=== PATIENT | female | born 1960 | race Caucasian/White ===

== ENCOUNTER → 2018-10-22 08:49 | Outpatient (CLI) | payer OTHER, SELFPAY ==
[2018-10-22 10:50] LABS: Alanine Aminotransferase 19 IU/L (9-52); Albumin 4.4 g/dL (3.5-5.0); Albumin Globulin Ratio 1.3 (1.0-2.8); Alkaline Phosphatase 63 U/L (38-126); Aspartate Aminotransferase 22 IU/L (14-36); BUN Creatinine Ratio 16.3 (6-22); Bilirubin Total 0.7 mg/dL (0.2-1.3); Blood Urea Nitrogen 13 mg/dL (7-17); Calcium 9.6 mg/dL (8.4-10.2); Carbon Dioxide 31 mmol/L (22-32); Chloride 101 mmol/L (98-107); Cholesterol 215 mg/dL (140-199); Estimated Glomerular Filt Rate > 60.0 mL/min (>60); Globulin 3.5 g/dL (1.7-4.1); Glucose 114 mg/dL (70-100); HDL Cholesterol 37 mg/dL (40-60); HEMOLYSIS < 15 (0-50); LDL Cholesterol Calculated 134 mg/dL (<100); Potassium 3.8 mmol/L (3.4-5.1); Sodium 141 mmol/L (137-145); Total Protein 7.9 g/dL (6.3-8.2); Triglycerides 221 mg/dL (35-150)
[2018-10-22 10:57] LABS: Creatinine Urine Random 123.4 mg/dL
[2018-10-22 10:58] LABS: Microalbumi Creatinin Ratio Ur 4.8 ug/mg CR (<30); Microalbumin Urine Random < 0.6 mg/dL (0-1.6)
[2018-10-22 11:16] LABS: Hemoglobin A1C% w Est Avg Glu 7.9 % (4.0-6.0)
== END ==
PROVIDERS: PCP Family Medicine; Visit Provider Family Medicine
DX: E10.9 Type 1 diabetes mellitus without complications (principal); E78.5 Hyperlipidemia, unspecified
CPT/HCPCS: 36415; 80053; 80061; 82043; 82570; 83036

== ENCOUNTER → 2019-01-01 16:06 | Outpatient (CLI) | payer OTHER, SELFPAY ==
--- NOTE | 2019-01-01 | DI.RAD.S_ITS ---
PROCEDURE: XR ANKLE LT MIN 3V INDICATIONS: Left ankle pain TECHNIQUE: 3 views of the ankle were acquired. COMPARISON: None. FINDINGS: Bones: No dislocations. Ankle mortise is normally aligned. No suspicious bony lesions. There is a diagonal fracture through the distal metadiaphyseal junction of the left ankle, displaced by approximately 3-4 mm from anatomic alignment. The ankle mortise joint is slightly widened laterally, but is not widened medially. No additional fracture is seen along the posterior malleolus or medial malleolus. Soft tissues: No tibiotalar joint effusion. Achilles tendon appears normal. IMPRESSION: High lateral left ankle fracture, moderately displaced. Reportedly the trauma occurred approximately 2 days ago. The patient is recommended to receive ER consultation at this time. Dictated by: Gregorio Briones M.D. on 01/01/2019 at 16:32 Approved by: Gregorio Briones M.D. on 01/01/2019 at 16:35
== END ==
PROVIDERS: PCP Family Medicine; Visit Provider Family Medicine
DX: M25.572 Pain in left ankle and joints of left foot (principal); S82.62XA Displaced fracture of lateral malleolus of left fibula, initial encounter for closed fracture; X58.XXXA Exposure to other specified factors, initial encounter
CPT/HCPCS: 73610

== ENCOUNTER 2019-01-01 16:36 | Emergency (ER) | payer OTHER, SELFPAY ==
[2019-01-01 16:40] VITALS: PULSE 73; RESP 14; TEMP 37.1; O2SAT 98; BMI 28.3
[2019-01-01 17:52] VITALS: PULSE 72
[2019-01-01] MEDS: IBUPROFEN 400 MG TABLET PO (17:58)
[2019-01-01] MEDS: ACETAMINOPHEN 325 MG TABLET 975 MG PO (17:58)
--- NOTE | 2019-01-01 18:21 | ED_ITS ---
HPI - Extremity Injury (Lower) General Chief Complaint: Extremity Injury, Lower Stated Complaint: left ankle fracture, sent by RISHABH for splinting Time Seen by Provider: 01/01/19 18:10 Source: patient Mode of arrival: ambulatory Limitations: no limitations History of Present Illness HPI Narrative: Patient is a 58-year-old female who sustained a left ankle injury approximately 1 week ago. She stated that she went to her primary doctor's office however did not have any radiologic studies performed. She did state that she asked not to have any studies performed. She has been walking on it for the past week however has had quite a bit of discomfort. She went back to her primary doctor today who obtained an outpatient x-ray which was positive for fracture she was sent to the emergency department for splint placement. Related Data Home Medications Medication Instructions Recorded Confirmed insulin degludec [Tresiba 60 units SUBCUT DAILY 01/01/19 FlexTouch U-200] insulin lispro [Humalog KwikPen 20 units SUBCUT TID 01/01/19 01/01/19 Insulin] Allergies Allergy/AdvReac Type Severity Reaction Status Date / Time cortisone [CORTISONE] Allergy Intermediate uncontrolled Verified 01/01/19 17:57 blood sugar Sulfa (Sulfonamide Allergy Intermediate hives Verified 01/01/19 17:57 Antibiotics) [SULFA (SULFONAMIDE ANTIBIOTICS)] narcotics Allergy Intermediate nausea Uncoded 09/05/17 12:41 Review of Systems Constitutional Denies fever(s), Denies headache(s) and Denies weakness ENT Ears, Nose, Mouth, and Throat: Denies headache(s) and Denies disequilibrium Musculoskeletal Comments: Left ankle pain Integumentary/Breasts Denies lesions and Denies rash Neurologic Denies headache(s), Denies tremor(s), Denies disequilibrium and Denies weakness Hematologic/Lymphatic Denies easy bleeding and Denies easy bruising [facility] Medical History Diabetes (Acute) Surgical History (Updated 09/25/17 @ 06:12 by Conversion Provider) Status post tubal ligation Family History (Updated 01/27/17 @ 00:00 by Conversion Provider) Brother Parkinson's disease Mother Age: 87 Stroke Sister Age: 53 Skin cancer Social History Smoking Status: Never smoker Family History (Updated 01/27/17 @ 00:00 by Conversion Provider) Brother Parkinson's disease Mother Age: 87 Stroke Sister Age: 53 Skin cancer Social History Smoking Status: Never smoker Exam Initial Vital Signs Initial Vital Signs: Vital Signs Temperature 98.8 F 01/01/19 16:40 Pulse Rate 73 01/01/19 16:40 Respiratory Rate 14 01/01/19 16:40 Pulse Oximetry 98 01/01/19 16:40 Const General: cooperative, comfortable, well developed and No acute distress Resp Effort & Inspection: normal respiratory effort Skin Lesions: no lesions Rashes: no rashes Extrem Other: Tenderness to palpation lateral aspect of the left ankle above the lateral malleolus Psych Appearance: grossly normal and well kempt Procedures Orthopedic Splinting/Casting Injury #1: Side: left Lower Extremity Injury Location: ankle Lower Extremity Immobilizer: posterior splint and stirrup splint Other Orthopedic Equipment: crutches Post splinting neuro exam: no change Post splinting vascular exam: no change Placed by: Nursing Course Orders Ordered: Discontinued Medications Acetaminophen (Tylenol) 975 mg PO NOW ONE Stop: 01/01/19 17:50 Last Admin: 01/01/19 17:58 Dose: 975 mg Ibuprofen (Advil) 400 mg PO NOW ONE Stop: 01/01/19 17:51 Last Admin: 01/01/19 17:58 Dose: 400 mg Vital Signs - 8 hr 01/01/19 16:40 01/01/19 17:52 01/01/19 18:40 Temperature 98.8 F Pulse Rate 73 76 Pulse Rate [Left Dorsalis Pedis] 72 Respiratory Rate 14 18 Blood Pressure [Left Arm] 159/78 H Pulse Oximetry 98 98 MDM - Extremity Injury (Lower) Imaging Data Ankle x-ray: Radiologist's impression: [address] [address] XRay Report Signed Patient: Abby Jules HMR#: [id number] : 1960cct:[id number] Age/Sex: 58 / FDate of Service: 01/01/19 Loc: DI Accession Number: [id number] Procedure: XR ankle LT min 3V Ordering Provider: Jeffrey Garcia MD PROCEDURE: XR ANKLE LT MIN 3V INDICATIONS: Left ankle pain TECHNIQUE: 3 views of the ankle were acquired. COMPARISON: None. FINDINGS: Bones: No dislocations. Ankle mortise is normally aligned. No suspicious bony lesions. There is a diagonal fracture through the distal metadiaphyseal junction of the left ankle, displaced by approximately 3-4 mm from anatomic alignment. The ankle mortise joint is slightly widened laterally, but is not widened medially. No additional fracture is seen along the posterior malleolus or medial malleolus. Soft tissues: No tibiotalar joint effusion. Achilles tendon appears normal. IMPRESSION: High lateral left ankle fracture, moderately displaced. Reportedly the trauma occurred approximately 2 days ago. The patient is recommended to receive ER consultation at this time. Dictated by: Gregorio Briones M.D. on 01/01/2019 at 16:32 Approved by: Gregorio Briones M.D. on 01/01/2019 at 16:35 [facility] Narrative Medical decision making narrative: The ankle x-ray report included in this note is for information purposes only. It was ordered by another provider as an outpatient. Patient is neurovascular intact. Does show an isolated distal fibula fracture. She has been ambulatory for the past week. She was placed in a splint and was given crutches for comfort. She was also given the phone number follow-up with the orthopedic group here in town was also instructed to contact her primary provider. She was given return precautions and follow-up instructions and care instructions. She expressed understanding and agreement plan. Discharge Plan Departure Patient Disposition: Home Clinical Impression: Fracture of distal end of left fibula Qualifiers: Encounter type: initial encounter Fracture type: closed Fracture morphology: unspecified fracture morphology Qualified Code(s): S82.832A - Other fracture of upper and lower end of left fibula, initial encounter for closed fracture Discharge Date/Time: 01/01/19 18:46 Interventions: ED Discharge Assessment Last Done: 01/01/19 18:46 Instructions: How to Use Crutches, How to Take Care of Your Splint, Fibula Shaft Fracture Activity Restrictions/Additional Instructions: Contact the [facility] group at [phone] for a follow up. Contact your primary care provider for a follow up as well. Return to the ER for any new or worsening symptoms. Prescriptions: No Action Humalog KwikPen Insulin 200 unit/mL (3 mL) insulin pen 20 units subcut TID RF: 0 Tresiba FlexTouch U-200 200 unit/mL (3 mL) insulin pen 60 units subcut DAILY RF: 0 Referrals: Jeffrey Garcia MD [Primary Care Provider] -
[2019-01-01 18:40] VITALS: BP 159/78; PULSE 76; RESP 18; O2SAT 98
== END 2019-01-01 18:46 | disposition home or self-care (01) ==
PROVIDERS: Emergency Provider Emergency Medicine; PCP Family Medicine
DX: S82.832A Other fracture of upper and lower end of left fibula, initial encounter for closed fracture (principal); X58.XXXA Exposure to other specified factors, initial encounter
CPT/HCPCS: 29515; 73610; 99282

== ENCOUNTER 2019-07-08 17:44 | Emergency (ER) | payer OTHER, SELFPAY ==
[2019-07-08 17:46] VITALS: BP 198/91; PULSE 106; RESP 18; TEMP 36.7; O2SAT 98
--- NOTE | 2019-07-08 18:33 | ED_ITS ---
HPI - Headache General Chief Complaint: Headache Stated Complaint: Swollen Temples and Headache Time Seen by Provider: 07/08/19 18:20 Source: patient Mode of arrival: Ambulatory Limitations: no limitations History of Present Illness HPI Narrative: 51-year-old female nonsmoker with history of diabetes presents with a chief complaint of bilaterally swollen temples and a vague headache over the course of the day. 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 She denies any blurred vision or trouble with speech. She has had no numbness, tingling or weakness. She denies chest pain or shortness of breath. She does admit that she has had some right upper extremity pain with range of motion off and on for quite some time. She denies any swollen lips, tongue or throat. She denies any trouble swallowing or difficulty breathing. She denies any rash or urticaria. Her headache is mild and generalized. She denies provocation or palliation MD Complaint: headache Onset (ago): hour(s) Onset description: gradual Location: diffuse Severity: mild Quality: aching Relieving factors: nothing Exacerbating factors: none Associated symptoms: other (Swollen temples) Related Data Home Medications Medication Instructions Recorded Confirmed insulin degludec [Tresiba 60 units SUBCUT DAILY 01/01/19 07/08/19 FlexTouch U-200] insulin lispro [Humalog KwikPen 20 units SUBCUT TID 01/01/19 07/08/19 Insulin] aspirin [Adult Low Dose Aspirin] 81 mg PO DAILY 07/08/19 07/08/19 Allergies Allergy/AdvReac Type Severity Reaction Status Date / Time cortisone [CORTISONE] Allergy Intermediate uncontrolled Verified 07/08/19 17:52 blood sugar Sulfa (Sulfonamide Allergy Intermediate hives Verified 07/08/19 17:52 Antibiotics) [SULFA (SULFONAMIDE ANTIBIOTICS)] narcotics Allergy Intermediate nausea Uncoded 09/05/17 12:41 Review of Systems Constitutional Constitutional: Denies chills, Denies fatigue, Denies fever(s), Denies frequent falls, Reports headache(s), Denies lethargy and Denies weakness Eyes Eyes: Denies change in vision, Denies eye discharge, Denies irritation and Denies loss of vision ENT Ears, Nose, Mouth, and Throat: Denies change in voice, Denies dizziness, Reports headache(s), Denies neck pain, Denies sore throat and Denies throat swelling Cardiovascular Cardiovascular: Denies chest pain, Denies irregular heart rhythm, Denies lightheadedness, Denies palpitations, Denies dyspnea, Denies dyspnea on exertion and Denies orthopnea Respiratory Respiratory: Denies cough, Denies dyspnea, Denies dyspnea on exertion and Denies wheezing Gastrointestinal Gastrointestinal: Denies abdominal pain, Denies change in bowel habits, Denies diarrhea, Denies nausea and Denies vomiting Genitourinary Genitourinary: Denies hematuria, Denies flank pain, Denies urinary incontinence and Denies urinary urgency Musculoskeletal Musculoskeletal: Denies back pain, Denies muscle weakness, Denies neck pain, Denies numbness and Denies tingling Integumentary/Breasts Skin/Breast: Denies pruritus, Denies erythema, Denies rash and Denies wounds Neurologic Neurologic: Denies behavioral changes, Denies confusion, Denies dizziness, Denies frequent falls, Reports headache(s), Denies loss of vision, Denies numbness, Denies tingling and Denies weakness Psychiatric Psychiatric: Denies anxiety, Denies behavioral changes, Denies confusion, Denies depression, Denies homicidal ideation and Denies suicidal ideation Endocrine Endocrine: Denies fatigue, Denies flushing and Denies palpitations Hematologic/Lymphatic Hematologic/Lymphatic: Denies easy bruising Allergic/Immunologic Allergic/Immunologic: Denies urticaria, Denies throat swelling and Denies wheezing Patient History Medical History (Updated 07/08/19 @ 20:30 by Carter Boyce DO) Diabetes (Acute) Surgical History (Updated 01/03/19 @ 10:39 by Lina Tomlin RN) H/O LEEP (Acute) Status post tubal ligation Family History (Updated 01/27/17 @ 00:00 by Conversion Provider) Brother Parkinson's disease Mother Age: 88 Stroke Sister Age: 54 Skin cancer Social History Smoking Status: Never smoker Smoking Status: Never smoker alcohol intake frequency: 0-2 drinks per day Substance Use Type: does not use Exam Narrative Exam Narrative: GENERAL: [59] year old patient appears stated age. Well-nour ished, well-developed patient, in mild distress. Anxious HEAD: Atraumatic. Normocephalic. No tenderness to palpation over bilateral temporal arteries. No obvious swelling noted, though it is reported by patient. EYES: Pupils equal round and reactive. Extraocular motions intact. No scleral icterus. No injection or drainage. ENT: Nose without bleeding, purulent drainage. Throat without erythema, tonsillar hypertrophy or exudate. Airway patent. NECK: Trachea midline. Non tender CARDIOVASCULAR: Regular rate and rhythm without murmurs, gallops, or rubs. RESPIRATORY: Clear to auscultation. Breath sounds equal bilaterally. No wheezes, rales, or rhonchi. GASTROINTESTINAL: Abdomen soft, non-tender, nondistended. EXTREMITIES: No edema or joint tenderness. BACK: Nontender without deformity or crepitance. No flank tenderness. NEURO: AOx3. SKIN: No rash or erythema of visible areas Initial Vital Signs Initial Vital Signs: Vital Signs Temperature 98.1 F 07/08/19 17:46 Pulse Rate 106 H 07/08/19 17:46 Respiratory Rate 18 07/08/19 17:46 Blood Pressure 198/91 H 07/08/19 17:46 Pulse Oximetry 98 07/08/19 17:46 Course Orders Ordered: ED Orders 07/08/19 19:13 Complete Blood Count AUTO DIFF Stat Comprehensive Metabolic Panel Stat Procalcitonin Stat Vital Signs Vital signs: Vital Signs - 8 hr 07/08/19 19:42 07/08/19 20:30 07/08/19 20:37 Pulse Rate 85 80 23 L Respiratory Rate 14 15 81 H Blood Pressure 154/86 H Blood Pressure [Right Arm] 177/84 H 154/86 H Pulse Oximetry 95 95 98 MDM - Headache Lab Data Result diagrams: 07/08/19 19:13 07/08/19 19:13 Labs: Lab Results 07/08/19 07/08/19 07/08/19 Range/Units 19:13 19:13 19:13 WBC 10.4 (4.5-11.0) X10^3/uL RBC 4.81 (4.0-5.2) X10^6/uL Hgb 13.8 (12.0-16.0) g/dL Hct 40.7 (36-46) % MCV 84.7 (80-100) fL MCH 28.7 (26-34) PG MCHC 33.9 (30-36) % RDW 13.4 (11.6-14.8) % Plt Count 334 (150-400) X10^3/uL Neut % (Auto) 61.0 (50-75) % Lymph % (Auto) 28.5 (25-40) % [place] % (Auto) 8.3 (3-14) % Eos % (Auto) 1.4 L (2-4) % Baso % (Auto) 0.8 (0-2) % Neut # (Auto) 6300 (2051-5052) /uL Lymph # (Auto) 3000 (1115-5531) /uL [place] # (Auto) 900 (0-900) /uL Eos # (Auto) 100 (0-450) /uL Baso # (Auto) 100 (0-100) /uL Sodium 140 (137-145) mmol/L Potassium 3.7 (3.4-5.1) mmol/L Chloride 103 (98-107) mmol/L Carbon Dioxide 31 (22-32) mmol/L BUN 15 (7-17) mg/dL Creatinine 0.80 (0.52-1.04) mg/dL Estimated GFR > 60.0 (>60) mL/min BUN/Creatinine Ratio 18.8 (6-22) Glucose 169 H (70-100) mg/dL Calcium 9.5 (8.4-10.2) mg/dL Total Bilirubin 0.3 (0.2-1.3) mg/dL AST 29 (14-36) IU/L ALT 17 (<35) IU/L Alkaline Phosphatase 78 (38-126) U/L Total Protein 8.2 (6.3-8.2) g/dL Albumin 4.5 (3.5-5.0) g/dL Globulin 3.7 (1.7-4.1) g/dL Albumin/Globulin Ratio 1.2 (1.0-2.8) Procalcitonin < 0.05 (<0.5) ng/mL MDM Narrative Medical decision making narrative: Multiple etiologies for patient's symptoms considered including: [Allergic reaction versus temporal arteritis versus other] Patient's symptoms improved or duration of stay with above-stated therapies. Findings and discharge diagnosis discussed with patient/family followed by verbalization of understanding Return precautions discussed with patient/family whom verbalize understanding. Discharge Plan Departure Patient Disposition: Home Clinical Impression: Facial swelling Headache Qualifiers: Headache type: unspecified Headache chronicity pattern: acute headache Intractability: not intractable Qualified Code(s): R51 - Headache Discharge Date/Time: 07/08/19 20:38 Instructions: DI for Headache Activity Restrictions/Additional Instructions: *You have been diagnosed with [bilateral alevism swelling, headache] *What to do: *Take medications as directed *Follow up with your primary care provider in 2-3 days, call for an appointment. Let them know you were seen in the Emergency Department and that we ask that you be seen in follow up *Return to ER if you should have any new, worsening or concerning symptoms Prescriptions: No Action Humalog KwikPen Insulin 200 unit/mL (3 mL) insulin pen 20 units subcut TID RF: 0 Tresiba FlexTouch U-200 200 unit/mL (3 mL) insulin pen 60 units subcut DAILY RF: 0 aspirin [Adult Low Dose Aspirin] 81 mg Tablet,Delayed Release (Dr/Ec) 81 mg PO DAILY RF: 0 Referrals: Jeffrey Garcia MD [Primary Care Provider] -
--- NOTE | 2019-07-08 18:49 | PC.NURSE ---
pt report, working at her garage, leaning forward , for 30 minutes, when she looked at the mirror, noticed bilateral rastafarian edema. denies injury, c/o headache, ear pain. coughing for 4 days, non productive. right chest soreness, +anxious, no rx. hx of diabetes on insulin. denies fever, +nausea, denies vomiting, denies traveling, denies visual changes. +shortness of breath. denies uti sxs.
[2019-07-08 18:55] VITALS: BP 177/84; PULSE 83; RESP 15; O2SAT 99
[2019-07-08 19:25] LABS: Add Manual Diff / Slide Review NO; Basophils Absolute Auto 100 /uL (0-100); Basophils Percent Auto 0.8 % (0-2); Eosinophils Absolute Auto 100 /uL (0-450); Eosinophils Percent Auto 1.4 % (2-4); Hematocrit 40.7 % (36-46); Hemoglobin 13.8 g/dL (12.0-16.0); Lymphocytes Absolute Auto 3000 /uL (1100-4500); Lymphocytes Percent Auto 28.5 % (25-40); Mean Corpuscular HGB Conc 33.9 % (30-36); Mean Corpuscular Hemoglobin 28.7 PG (26-34); Mean Corpuscular Volume 84.7 fL (80-100); Monocytes Absolute Auto 900 /uL (0-900); Monocytes Percent Auto 8.3 % (3-14); Neutrophils Absolute Auto 6300 /uL (1500-7000); Platelet Count 334 X10^3/uL (150-400); Red Blood Cell Count 4.81 X10^6/uL (4.0-5.2); Red Cell Distribution Width 13.4 % (11.6-14.8); White Blood Cell Count 10.4 X10^3/uL (4.5-11.0)
[2019-07-08 19:37] LABS: Alanine Aminotransferase 17 IU/L (<35); Albumin 4.5 g/dL (3.5-5.0); Albumin Globulin Ratio 1.2 (1.0-2.8); Alkaline Phosphatase 78 U/L (38-126); Aspartate Aminotransferase 29 IU/L (14-36); BUN Creatinine Ratio 18.8 (6-22); Bilirubin Total 0.3 mg/dL (0.2-1.3); Blood Urea Nitrogen 15 mg/dL (7-17); Calcium 9.5 mg/dL (8.4-10.2); Carbon Dioxide 31 mmol/L (22-32); Chloride 103 mmol/L (98-107); Estimated Glomerular Filt Rate > 60.0 mL/min (>60); Globulin 3.7 g/dL (1.7-4.1); Glucose 169 mg/dL (70-100); HEMOLYSIS < 15 (0-50); Potassium 3.7 mmol/L (3.4-5.1); Sodium 140 mmol/L (137-145); Total Protein 8.2 g/dL (6.3-8.2)
[2019-07-08 19:42] VITALS: BP 177/84; PULSE 85; RESP 14; O2SAT 95
[2019-07-08 19:52] LABS: Procalcitonin < 0.05 ng/mL (<0.5)
[2019-07-08 20:30] VITALS: BP 154/86; PULSE 80; RESP 15; O2SAT 95
[2019-07-08 20:37] VITALS: BP 154/86; PULSE 23; RESP 81; O2SAT 98
== END 2019-07-08 20:38 | disposition home or self-care (01) ==
PROVIDERS: Emergency Provider Emergency Medicine; PCP Family Medicine
DX: R22.0 Localized swelling, mass and lump, head (principal); R51 Headache
CPT/HCPCS: 36415; 80053; 84145; 85025; 99283

== ENCOUNTER → 2020-08-09 17:07 | Outpatient (CLI) | payer OTHER, SELFPAY ==
[2020-08-09] MEDS: COVID-19 VACC, Ad26(JANSSEN)/PF 0.5 ML IM (17:21)
== END ==
PROVIDERS: PCP Family Medicine; Visit Provider Internal Medicine
DX: Z23 Encounter for immunization (principal)
CPT/HCPCS: 0031A; 91303

== ENCOUNTER 2020-11-24 18:45 | Emergency (ER) | payer OTHER, SELFPAY ==
[2020-11-24 19:06] VITALS: BP 172/82; PULSE 86; RESP 17; TEMP 37.2; O2SAT 99; BMI 28.8
--- NOTE | 2020-11-24 19:08 | DI.RAD.S_ITS ---
PROCEDURE: XR TOE RT MIN 2V INDICATIONS: injury TECHNIQUE: 3 views of the 5th toe(s) acquired. COMPARISON: None. FINDINGS: Bones: No fractures or dislocations but there is mild malalignment at the interphalangeal joint with the distal phalanx deviated and angulated laterally.. No suspicious bony lesions. Soft tissues: No suspicious soft tissue densities. IMPRESSION: Probable ligamentous injury at the medial aspect of the 5th interphalangeal joint, with prominent overlying soft tissue swelling. No fracture seen, no foreign body identified. Dictated by: Gregorio Briones M.D. on 11/24/2020 at 19:32 Approved by: Gregorio Brioens M.D. on 11/24/2020 at 19:33
--- NOTE | 2020-11-24 20:04 | ED.LOWEXIN ---
HPI - Extremity Injury (Lower) General Chief Complaint: Extremity Injury, Lower Stated Complaint: Broken rt pinky toe Time Seen by Provider: 11/24/20 20:00 Source: patient Mode of arrival: Wheelchair History of Present Illness HPI Narrative: Patient is here for evaluation of which she thinks is a broken right little toe. She states that earlier this evening her dog stepped on her little toe. She does feel like it is deviated to the side. Related Data Home Medications Medication Instructions Recorded Confirmed insulin degludec 200 unit/mL (3 60 units SUBCUT DAILY 01/01/19 03/01/20 mL) subcutaneous pen insulin lispro 200 unit/mL (3 mL) 20 units SUBCUT TID 01/01/19 03/01/20 subcutaneous pen aspirin 81 mg tablet,delayed 81 mg PO DAILY 07/08/19 03/01/20 release (Adult Low Dose Aspirin) Allergies Allergy/AdvReac Type Severity Reaction Status Date / Time cortisone [CORTISONE] Allergy Intermediate uncontrolled Verified 11/24/20 19:08 blood sugar Sulfa (Sulfonamide Allergy Intermediate hives Verified 11/24/20 19:08 Antibiotics) [SULFA (SULFONAMIDE ANTIBIOTICS)] narcotics Allergy Intermediate nausea Uncoded 11/24/20 19:08 Review of Systems Musculoskeletal Musculoskeletal: Denies tingling Comments: Right little toe pain Integumentary/Breasts Comments: Slight bruising around the right little toe Neurologic Neurologic: Denies tingling Hematologic/Lymphatic On Anticoagulants: No 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) Diabetes Surgical History (Updated 01/03/19 @ 10:39 by Lina Tomlin RN) H/O LEEP Status post tubal ligation Family History (Updated 01/27/17 @ 00:00 by Conversion Provider) Brother Parkinson's disease Mother Age: 89 Stroke Sister Age: 55 Skin cancer Social History Smoking Status: Never smoker Smoking Status: Never smoker alcohol intake frequency: other Substance Use Type: does not use Exam Initial Vital Signs Initial Vital Signs: Vital Signs Temperature 99 F 11/24/20 19:06 Pulse Rate 86 11/24/20 19:06 Respiratory Rate 17 11/24/20 19:06 Blood Pressure 172/82 H 11/24/20 19:06 Pulse Oximetry 99 11/24/20 19:06 Cardio Pulses: dorsalis pedis present on the right Skin Other: Slight bruising over the right little toe Neuro General: patient alert and patient awake Sensory Exam: no sensory deficits noted Extrem Other: Tenderness to palpation over the right little toe. The rest for right foot exam is unremarkable. Psych Appearance: grossly normal Course Orders Ordered: ED Orders 11/24/20 19:08 XR toe RT min 2V Stat Vital Signs Vital signs: Vital Signs - 8 hr 11/24/20 20:15 Pulse Rate 78 Respiratory Rate 16 Blood Pressure 160/72 H Pulse Oximetry 98 MDM - Extremity Injury (Lower) Imaging Data Extremity x-ray #1: Radiologist's Impression: [address] [id number] ReportSigned Patient: Abby Jules HMR#: [id number]: 1960cct:[id number]/Sex: 60 / FDate of Service: 11/24/20Loc: EDAccession Number: [id number] Procedure: XR toe RT min 2V Ordering Provider: Hayde Mahan D.O. PROCEDURE: XR TOE RT MIN 2V INDICATIONS: injury TECHNIQUE: 3 views of the 5th toe(s) acquired. COMPARISON: None. FINDINGS: Bones: No fractures or dislocations but there is mild malalignment at the interphalangeal joint with the distal phalanx deviated and angulated laterally.. No suspicious bony lesions. Soft tissues: No suspicious soft tissue densities. IMPRESSION: Probable ligamentous injury at the medial aspect of the 5th interphalangeal joint, with prominent overlying soft tissue swelling. No fracture seen, no foreign body identified. Dictated by: Gregorio Briones M.D. on 11/24/2020 at 19:32 Approved by: Gregorio Briones M.D. on 11/24/2020 at 19:33 [facility] Narrative Medical decision making narrative: She is neurovascularly intact. There are no fractures noted on the x-rays. She does have a slight lateral deviation the right little toe which will be ligamentous injury. The little toe was saúl-taped to the toe next to it. She was given care instructions and return precautions. She expressed understanding and agreement. Discharge Plan Departure Patient Disposition: Home Clinical Impression: Injury of toe on right foot Instructions: DI for Toe Sprain, How to Saúl Tape Activity Restrictions/Additional Instructions: There were no fractures noted on the x-rays. You can walk as tolerated. Also recommend you saúl-tape the little toe to the toe next to it. I would not be surprised if you develop some bruising over the next day or so. This could potentially be 7-10 days before your symptoms have improved. Return to the emergency department for any new or worsening symptoms Prescriptions: No Action Humalog KwikPen Insulin 200 unit/mL (3 mL) insulin pen 20 units subcut TID RF: 0 Tresiba FlexTouch U-200 200 unit/mL (3 mL) insulin pen 60 units subcut DAILY RF: 0 aspirin [Adult Low Dose Aspirin] 81 mg Tablet,Delayed Release (Dr/Ec) 81 mg PO DAILY RF: 0 Referrals: Jeffrey Garcia MD [Primary Care Provider] -
--- NOTE | 2020-11-24 20:14 | PC.NURSE ---
no deformity noted. Small about of swelling noted increase pain with weight bearing.
[2020-11-24 20:15] VITALS: BP 160/72; PULSE 78; RESP 16; O2SAT 98
== END 2020-11-24 20:15 | disposition home or self-care (01) ==
PROVIDERS: Emergency Provider Emergency Medicine; PCP Family Medicine
DX: S93.514A Sprain of interphalangeal joint of right lesser toe(s), initial encounter (principal); W54.8XXA Other contact with dog, initial encounter
CPT/HCPCS: 73660; 99281; 99283

== ENCOUNTER → 2021-12-01 06:39 | Outpatient (CLI) | payer OTHER, SELFPAY ==
--- NOTE | 2021-12-01 06:40 | DI.US.S_ITS ---
PROCEDURE: US ABDOMEN COMPLETE INDICATIONS: NAUSEA TECHNIQUE: Real-time scanning was performed of the abdominal and retroperitoneal organs, with image documentation. COMPARISON: None. FINDINGS: Liver: Liver is normal in size and homogeneous in echotexture. Gallbladder: The gallbladder wall measures 1.3 mm in diameter. A 3 mm polyp is present within the fundus. No stones, sludge, pericholecystic fluid, or sonographic Tejada sign. Biliary ducts: Intrahepatic bile ducts are non-dilated. Extrahepatic bile duct caliber measures 4.9 mm. Normal is 6-7 mm or less in diameter, or 10 mm or less post-cholecystectomy. Pancreas: Visualized portions of the pancreas are sonographically normal. Spleen: Spleen is normal in size and homogeneous in echotexture. Kidneys: Kidneys are normal in size and echotexture. Right kidney measures 10.5 cm long; left kidney measures 10.3 cm long. No hydronephrosis or nephrolithiasis. No solid masses. Aorta: Visualized aorta is normal in caliber at less than 3 cm. Iliacs: Proximal common iliac arteries are normal in caliber at less than 2.5 cm. IVC: Intrahepatic inferior vena cava is patent. Miscellaneous: No free abdominal fluid. IMPRESSION: 1. No cholelithiasis or findings to suggest choledocholithiasis or acute cholecystitis. 2. 3 mm gallbladder polyp. Gallbladder polyps under 6 mm do not require further sonographic follow-up. Dictated by: Galina Armijo M.D. on 12/01/2021 at 8:26 Approved by: Galina Armijo M.D. on 12/01/2021 at 8:27
== END ==
PROVIDERS: PCP Family Medicine; Referring Provider Family Medicine; Visit Provider Family Medicine
DX: K82.4 Cholesterolosis of gallbladder (principal); R11.0 Nausea
CPT/HCPCS: 76700

== ENCOUNTER 2022-07-25 06:36 | Day surgery (SDC) | payer OTHER, SELFPAY ==
[2022-07-25 07:30] VITALS: BP 140/77; PULSE 108; RESP 20; TEMP 37.4; O2SAT 98; BMI 25.7
[2022-07-25] MEDS: LACTATED RINGERS 1,000 ML 200 ML IV (07:37)
--- NOTE | 2022-07-25 07:38 | SUR.PREOP ---
Patient appears anxious and states that she has severe reactions to any narcotics; explained to patient that concerns would be explained to Provider and nursing staff in endoscopy. Patient nauseated and diaphoretic; blood sugar 179; patient states that this morning her blood sugar was 98 which was low' for her and she had to drink some gatorade. Advised patient that we would address all concerns.
[2022-07-25] MEDS: METOCLOPRAMIDE 10 MG/2 ML INJ IV (07:52)
--- NOTE | 2022-07-25 09:08 | PM.HP.1 ---
History of Present Illness History of Present Illness Date Patient Seen: 07/25/22 Time Patient Seen: 09:08 Chief complaint: Screening Colonoscopy Narrative: The patient presents for colorectal screening. They have never had any previous examination for such. No personal or family history of colon cancer. She has chronic nausea however no unintentional weight loss blood per rectum hematemesis. 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) Diabetes Surgical History H/O LEEP Status post tubal ligation Family & Social History Family History Brother Parkinson's disease Mother Age: 91 Stroke Sister Age: 57 Skin cancer Social History: household members significant other Tobacco & Substance use: Smoking Status Never smoker alcohol intake never alcohol intake frequency other Substance Use Type does not use Meds Home Medications and Allergies Home Medications Medication Instructions Recorded Confirmed Type insulin degludec 200 unit/mL (3 60 units SUBCUT DAILY 01/01/19 07/25/22 History mL) subcutaneous pen insulin lispro 200 unit/mL (3 mL) 20 units SUBCUT TID 01/01/19 07/25/22 History subcutaneous pen aspirin 81 mg tablet,delayed 81 mg PO DAILY 07/08/19 07/25/22 History release (Adult Low Dose Aspirin) Allergies Allergy/AdvReac Type Severity Reaction Status Date / Time cortisone [CORTISONE] Allergy Intermediate uncontrolled Verified 07/25/22 07:13 blood sugar Sulfa (Sulfonamide Allergy Intermediate hives Verified 07/25/22 07:13 Antibiotics) [SULFA (SULFONAMIDE ANTIBIOTICS)] ondansetron [From Zofran] AdvReac Nausea Verified 07/25/22 07:13 narcotics Allergy Intermediate nausea Uncoded 07/25/22 07:13 Exam Vital Signs (past 8 hours): - 07/25/22 07:30 Temperature 99.4 F Pulse Rate 108 H Respiratory Rate 20 Blood Pressure 140/77 Pulse Oximetry 98 Oxygen Delivery Method Room Air Oxygen Delivery Method Room Air Narrative Exam Narrative: General adult woman alert oriented no acute distress Assessment & Plan Assessment & Plan narrative: The patient requires colorectal screening and colonoscopy is recommended. Technical details were discussed. Risks, benefits, alternatives explained. Risks including but not limited to myocardial infarction, aspiration, bleeding, pain, missed lesion, incomplete examination, need for further radiographic studies, colonic perforation, and need for major abdominal surgery were discussed. All questions were answered to their satisfaction, and they are in agreement with this plan. Time Spent With Patient Critical Care time: I spent a total of [] minutes of critical care time on this patient's care today; this time is exclusive of procedural time.
--- NOTE | 2022-07-25 09:20 | PM.OP.COLON ---
Operative Date/Time/Diagnoses Date of procedure: 07/25/22 Time of procedure: 09:20 Pre-op diagnosis: Colorectal screening Post-op diagnosis: same Procedure & Clinicians Study performed: Colonoscopy Same procedure as scheduled: Yes Indications: Colorectal screening Surgeon: Jose Tran Procedure Notes Procedure in detail: The history and physical was performed/updated and the patient is ASA class is 2. The procedure was discussed in detail with the patient. Potential risks complications including infection, bleeding, missed diagnosis, perforation, need for surgery, and were explained. Their questions were answered and informed consent was obtained. Patient was brought to the procedure room and placed standard monitoring equipment. The patient's vital signs were monitored continuously throughout the entire procedure. Prior to starting time-out was performed. The patient was placed in the left lateral recumbent position. Procedural sedation was administered by anesthesia. Examination began with a thorough inspection of the perianal area there was no evidence of fissures, fistulae, external hemorrhoids or cutaneous malignancy. The colonoscopy scope was then placed into the anal canal and was advanced to the cecum, which was identified by the ileocecal valve, the appendiceal orifice and the confluence of the taenia. The scope was then slowly withdrawn examining colon thoroughly in all directions, irrigating it of any residual stool. Quality of the prep was poor. There were no masses polyps identified. Mild diverticulosis within the sigmoid colon The patient tolerated the procedure well. They will be discharged once criteria are met. The withdrawl time was 8 minutes. Specimen(s): none sent Impression: Normal colonoscopy Post-procedure Recommendations: Colonoscopy in 10 years and High fiber diet Disposition: same day surgery
[2022-07-25 09:40] VITALS: BP 105/75; PULSE 91; RESP 16; TEMP 36.4; O2SAT 99
[2022-07-25 09:45] VITALS: BP 107/66; PULSE 84; RESP 14; O2SAT 97
[2022-07-25 09:50] VITALS: BP 104/68; PULSE 85; RESP 16; O2SAT 98
[2022-07-25 09:52] VITALS: BP 113/71; PULSE 82; RESP 16; TEMP 36.2; O2SAT 97
== END 2022-07-25 10:10 | disposition home or self-care (01) ==
PROVIDERS: PCP Family Medicine; Referring Provider Surgery; Visit Provider Surgery
PROC: 0DJD8ZZ Inspection of Lower Intestinal Tract, Via Natural or Artificial Opening Endoscopic (ICD-10-PCS; CPT 45378; principal; 2022-07-25 07:45)
DX: Z12.11 Encounter for screening for malignant neoplasm of colon (principal); K57.30 Diverticulosis of large intestine without perforation or abscess without bleeding
CPT/HCPCS: 45378; J2704; J2765

== ENCOUNTER → 2022-11-27 12:54 | Outpatient (ROUT) | payer OTHER, SELFPAY ==
[2022-11-27 15:16] LABS: Adenovirus Not Detected (Not Detect); B. parapertussis Not Detected (Not Detecte); Bordetella pertussis Not Detected (Not Detecte); Chlamydophila pneumoniae Not Detected (Not Detect); Coronavirus 229E Not Detected (Not Detect); Coronavirus HKU1 Not Detected (Not Detect); Coronavirus NL 63 Not Detected (Not Detect); Coronavirus OC43 Not Detected (Not Detect); Human Metapneumovirus Not Detected (Not Detect); Human Rhinovirus/Enterovirus Not Detected (Not Detect); Influenza A Detected (Not Detect); Influenza B Not Detected (Not Detect); Mycoplasma pneumoniae Not Detected (Not Detect); Parainfluenza Virus 1 Not Detected (Not Detect); Parainfluenza Virus 2 Not Detected (Not Detect); Parainfluenza Virus 3 Not Detected (Not Detect); Parainfluenza Virus 4 Not Detected (Not Detect); Respiratory Syncytial Virus Not Detected (Not Detect); SARS- CoV-2 Not Detected (Not Detecte)
== END ==
PROVIDERS: PCP Family Medicine; Visit Provider Family Medicine
DX: R50.9 Fever, unspecified (principal)
CPT/HCPCS: 87633

== ENCOUNTER → 2023-10-23 15:18 | Outpatient (CLI) | payer OTHER, SELFPAY | LOC: LAB 15:20 | PROVIDERS: PCP Family Medicine; Referring Provider Obstetrics & Gynecology; Visit Provider Obstetrics & Gynecology | DX: Z12.11 Encounter for screening for malignant neoplasm of colon (principal) | CPT/HCPCS: 82274 ==

== ENCOUNTER → 2023-12-12 11:10 | Outpatient (CLI) | payer OTHER, SELFPAY ==
[2023-12-12 12:17] LABS: Hemoglobin A1C% w Est Avg Glu 8.9 % (4.0-6.0)
== END ==
PROVIDERS: PCP Family Medicine; Referring Provider Family Medicine; Visit Provider Family Medicine
DX: E13.9 Other specified diabetes mellitus without complications (principal)
CPT/HCPCS: 36415; 83036